=== PATIENT | male | born 1990 | race Caucasian/White ===

== ENCOUNTER 2018-02-08 13:29 | Emergency (ER) | payer OTHER ==
[~2018-02-08] VITALS: Ht 188 cm; Wt 109.0 kg
[~2018-02-08 13:29] MED LIST: Z.0.NO CURRENT MEDS
[2018-02-08 13:33] VITALS: BP 127/58; PULSE 88; RESP 14; TEMP 98.3; O2SAT 98
[2018-02-08] MEDS ORDERED: ZOLO100T PO (18:07)
[2018-02-08] MEDS ORDERED: ALPR.5 PO (18:07)
[2018-02-08] MEDS ORDERED: BUPR150XL PO (18:07)
--- NOTE | 2018-02-08 19:02 | RADRPT ---
EXAM DATE: 02/08/2018 6:39 PM EDT AGE/SEX: 27 years / Male INDICATIONS: Patient complains of left sided chest pain that radiates into left shoulder. CLINICAL DATA: This is the patient's initial encounter. Patient reports that signs and symptoms have been present for 3 days and indicates a pain score of 6/10. MEDICAL/SURGICAL HISTORY: None. None. COMPARISON: No prior exams available for comparison. FINDINGS: PA and lateral views of the chest demonstrate the lungs to be symmetrically aerated without evidence of mass, infiltrate or effusion. The cardiomediastinal contours are unremarkable. Osseous structures are intact. CONCLUSION: No acute cardiopulmonary disease. Electronically signed by: Gary Cagle MD 02/08/2018 7:01 PM EDT
--- NOTE | 2018-02-08 19:04 | RADRPT ---
EXAM DATE: 02/08/2018 6:40 PM EDT AGE/SEX: 27 years / Male INDICATIONS: Upper back/left sided chest pains. CLINICAL DATA: This is the patient's initial encounter. Patient reports that signs and symptoms have been present for 3 days and indicates a pain score of 6/10. MEDICAL/SURGICAL HISTORY: None. None. COMPARISON: No prior exams available for comparison. FINDINGS: A single view of the spine was performed. There is normal alignment of the vertebral bodies without evidence of subluxation. Vertebral body height and disc space height is maintained. CONCLUSION: There is no evidence of acute fracture. Electronically signed by: Gary Cagle MD 02/08/2018 7:03 PM EDT
[2018-02-08 19:07] VITALS: BP 125/77; PULSE 60; RESP 17; O2SAT 99
[2018-02-08] MEDS ORDERED: MELO7.5T27 PO (19:10)
--- NOTE | 2018-02-08 19:10 | PD ---
HPI Chief Complaint: Musculoskeletal Complaint Time Seen by Provider: 17:43 Travel History International Travel<30 days: No Contact w/Intl Traveler<30days: No Traveled to known affect area: No History of Present Illness HPI This is a 27-year-old male who presents to the emergency department with an injury 1 year ago where he got crushed by a wardrobe injuring his left chest wall. He has had intermittent pains in the left chest ever since that wrapped from the front of his torso around the back and he feels a clicking sometimes when he moves. The pain is moderate severity with no associated shortness of breath. He also has back pain from this injury. The pain is been getting worse so he came to the emergency department to be evaluated. He denies any recent long trips or travel and denies any leg swelling. PFSH Past Medical History Anxiety: Yes Depression: Yes Diminished Hearing: No Psychiatric: Yes (OCD) Immunizations Current: Yes Influenza Vaccination: No Past Surgical History Surgical History: No Previous Surgery Social History Alcohol Use: No Tobacco Use: No Substance Use: No Allergies-Medications (Allergen,Severity, Reaction): Coded Allergies: No Known Allergies (Verified Allergy, Mild, 02/08/18) Reported Meds & Prescriptions Reported Meds & Active Scripts Active Reported Xanax (Alprazolam) 0.5 Mg Tab 0.5 Mg PO Q8H PRN Zoloft (Sertraline HCl) 100 Mg Tab 100 Mg PO DAILY Wellbutrin Xl 24 HR (Bupropion HCl) 150 Mg Tab 150 Mg PO DAILY No Current Meds (Miscellaneous Medication) Misc Review of Systems Except as stated in HPI: all other systems reviewed are Neg Physical Exam Narrative GENERAL:Well appearing, no acute distress SKIN: Focused skin assessment warm and dry. HEAD: Atraumatic. Normocephalic. EYES: Pupils equal and round. No injection or drainage. ENT: Moist mucous membranes NECK: Trachea midline. CARDIOVASCULAR: Regular rate and rhythm. No murmur appreciated. RESPIRATORY: Clear to auscultation. Breath sounds equal bilaterally. GASTROINTESTINAL: Abdomen soft, non-tender, nondistended. MUSCULOSKELETAL: Tender to palpation in the mid thoracic spine and along the left anterior chest wall NEUROLOGICAL: Awake and alert. No obvious cranial nerve deficits. Moving all extremities. PSYCHIATRIC: Appropriate mood and affect; insight and judgment normal. Data Data Last Documented VS Vital Signs Date Time Temp Pulse Resp B/P (MAP) Pulse Ox O2 Delivery O2 Flow Rate FiO2 02/08/18 13:33 98.3 88 14 127/58 (81) 98 Orders Orders Chest, Pa & Lat (02/08/18 ) Spine, Thoracic - Lateral Only (02/08/18 ) MDM Medical Decision Making Medical Screen Exam Complete: Yes Emergency Medical Condition: Yes Differential Diagnosis Compression fracture, rib fracture, pulmonary contusion Narrative Course This is a 27-year-old male who presents to the emergency department with left- sided rib pain and chest wall pain that wraps around the left side. He has normal vital signs and a benign physical exam. He had an injury a year ago. He works as a [employer]yle and has had some repetitive use to the muscles and likely has some muscle strain. I think patient can safely be discharged home with anti -inflammatories. He was put on light duty at work. Diagnosis Primary Impression: Musculoskeletal chest pain Patient Instructions: General Instructions Additional Instructions: If you develop severe chest pain, shortness of breath, sweating, lightheadedness , dizziness or difficulty breathing return to the emergency department immediately. Followup with your primary care physician in 2-3 days if your symptoms are not resolved. Med/Other Pt SpecificInfo: Prescription(s) given Scripts Meloxicam (Meloxicam) 7.5 Mg Tab 7.5 MG PO DAILY for Arthritis Pain for 14 Days, #14 TAB 0 Refills Prov: Ilene Medel MD 02/08/18 Disposition: 01 DISCHARGE HOME Condition: Stable Ilene Medel MD Feb 08, 2018 19:10
== END 2018-02-08 19:33 | disposition home or self-care (01) ==
LOC: NEPD 13:29
DX: R07.89 Other chest pain (principal); F32.9 Major depressive disorder, single episode, unspecified; M54.9 Dorsalgia, unspecified
CPT/HCPCS: 71046; 72020; 99283